=== PATIENT | male | born 1990 | race Two or more races ===

== ENCOUNTER 2016-11-04 22:56 | Emergency (ER) | payer BC, MEDICAID ==
[~2016-11-04] VITALS: Ht 177.8 cm; Wt 86.2 kg
[2016-11-05 01:33] VITALS: BP 146/84
[2016-11-05] MEDS ORDERED: TETANUS-DIPTH-ACEL PERTUSSIS 0.5ML SYRG IM ONE (02:15)
[2016-11-05] MEDS ORDERED: HYDROcodone-ACET 5/325MG TAB PO ONE (02:15)
== END 2016-11-05 02:26 | disposition home or self-care (01) ==
LOC: ER 22:59
DX: S61.411A Laceration without foreign body of right hand, initial encounter (principal); W26.9XXA Contact with unspecified sharp object(s), initial encounter; Y93.89 Activity, other specified; Y99.8 Other external cause status; Y92.89 Other specified places as the place of occurrence of the external cause
CPT/HCPCS: 90471; 90715

== ENCOUNTER 2016-11-14 06:06 | Emergency (ER) | payer MEDICAID ==
[2016-11-14 06:11] VITALS: BP 150/103
[2016-11-14] MEDS ORDERED: LIDOCAINE 1% HCL (LOCAL ANESTH.) INJ 20ML MDV ONE (07:24)
[2016-11-14] MEDS ORDERED: LIDOCAINE 1% HCL (LOCAL ANESTH.) INJ 20ML MDV IJ ONE (07:45)
== END 2016-11-14 07:43 | disposition home or self-care (01) ==
LOC: ER 06:09
DX: L02.512 Cutaneous abscess of left hand (principal); F17.210 Nicotine dependence, cigarettes, uncomplicated
CPT/HCPCS: 26010; 99283; J2001